=== PATIENT | female | born 1940 | race Caucasian/White ===

== ENCOUNTER 2018-11-16 06:27 | Day surgery (SDC) | payer MEDICARE, BC ==
[2018-11-14 15:46] LABS: MICROSCOPIC NOT IND
[2018-11-14 15:49] LABS: CULTURE INDICATED? NO
[2018-11-14 15:49] LABS: BASOPHILS # (AUTO) 0.05 x10^3/uL (0-0.1); BASOPHILS % (AUTO) 1 % (0-1); EOSINOPHILS % (AUTO) 4 % (1-7); LYMPHOCYTES # (AUTO) 1.46 x10^3/uL (1-3.4); LYMPHOCYTES % (AUTO) 28 % (22-44); MD NO; MEAN CORPUSCULAR HEMOGLOBIN 32.4 pg (27.0-34.8); MEAN PLATELET VOLUME 8.3 fL (7.4-10.4); MONOCYTES # (AUTO) 0.55 x10^3/uL (0.2-0.8); MONOCYTES % (AUTO) 11 % (2-9); NEUTROPHILS # (AUTO) 2.99 x10^3/uL (1.8-6.8); NEUTROPHILS % (AUTO) 57 % (42-75); PLATELET COUNT 233 x10^3/uL (130-400); RED BLOOD COUNT 4.23 x10^6/uL (3.82-5.3); RED CELL DISTRIBUTION WIDTH 13.3 % (9.6-15.2)
[2018-11-14 15:55] LABS: ANION GAP 9 mmol/L (5-15); CALCIUM 9.1 mg/dL (8.5-10.1); CHLORIDE 106 mmol/L (98-107); CREATININE 1.05 mg/dL (0.55-1.02); INTERNATIONAL NORMALIZED RATIO 0.95 (0.93-1.1)
[~2018-11-16] VITALS: Ht 167.6 cm; Wt 62.8 kg
[~2018-11-16 06:27] MED LIST: ALIGN PROBIOTIC PO; ASCO-96 PO; ATOR20TA37 PO; BACITRACIN 50,000 UNIT ONE; BIOT25005 PO; BUPIVACAINE/PF 0.25% ONE; CART1TAB4 PO; CYAN25009 PO; EPINEPHRINE 1 MG/ML, 1ML ONE; ESTR0.5T PO; GABA300C10 PO; IBUP200C8 PO; LEVO100T5 PO; LIFI1DRO EACHEYE; MAGN100T PO; ONE A DAY WOMEN'S PO; SELE200T10 PO; THROMBIN 5,000 UNIT VIAL TP ONE; TRAZ50TA66 PO; UBID100C10 PO; VANCOMYCIN 1,000 MG ONE; VITAMIN D3 PO; ZINC PO; [UNRECOGNIZED DRUG - OTHER] PO
[2018-11-16] MEDS ORDERED: LACTATED RINGERS 1,000 ML IV SCH (07:06)
[2018-11-16] MEDS ORDERED: ACETAMINOPHEN 500 MG TABLET PO ONE (07:30)
[2018-11-16] MEDS ORDERED: GABAPENTIN 300 MG CAPSULE PO ONE (07:30)
[2018-11-16 07:34] VITALS: BP 101/64
[2018-11-16] MEDS ORDERED: methylPREDNISolone SOD SUCC 125 MG/2 ML ONE (07:53)
[2018-11-16] MEDS ORDERED: FENTANYL PF 250 MCG/5ML ONE (08:45)
[2018-11-16] MEDS ORDERED: PROMETHAZINE 25 MG/ML, 1ML IV PRN (09:00)
[2018-11-16] MEDS ORDERED: hydrALAzine 20 MG/ML, 1ML IV PRN (09:00)
[2018-11-16] MEDS ORDERED: METOPROLOL 1 MG/ML, 5ML IV PRN (09:00)
[2018-11-16] MEDS ORDERED: DIPHENHYDRAMINE 50 MG/ML, 1ML IVPush PRN (09:00)
[2018-11-16] MEDS ORDERED: MEPERIDINE/PF 25MG/0.5ML IVPush PRN (09:00)
[2018-11-16] MEDS ORDERED: OXYcodone 5 MG/5 ML ORAL.SOL UDC PO PRN (09:00)
[2018-11-16] MEDS ORDERED: HALOPERIDOL 5 MG/ML IV PRN (09:00)
[2018-11-16] MEDS ORDERED: HYDROmorphone 2 MG/ML, 1ML IVPush PRN (09:00)
[2018-11-16] MEDS ORDERED: PROCHLORPERAZINE 5 MG/ML, 2ML IV PRN (09:00)
[2018-11-16] MEDS ORDERED: LABETALOL 5MG/ML, 20ML IV PRN (09:00)
[2018-11-16] MEDS ORDERED: FENTANYL PF 100 MCG/2ML IV PRN (09:00)
[2018-11-16] MEDS ORDERED: FENTANYL PF 100 MCG/2ML ONE (09:23)
[2018-11-16] MEDS ORDERED: NEOSTIGMINE 1 MG/ML, 10ML ONE (09:33)
[2018-11-16] MEDS ORDERED: ROCURONIUM 10MG/ML,5ML ONE (09:33)
[2018-11-16] MEDS ORDERED: GLYCOPYRROLATE 0.2MG/1ML, 5ML ONE (09:33)
[2018-11-16] MEDS ORDERED: SUCCINYLCHOLINE 20 MG/ML, 10ML ONE (09:33)
[2018-11-16] MEDS ORDERED: ONDANSETRON 2MG/ML, 2ML ONE (09:33)
[2018-11-16] MEDS ORDERED: DEXAMETHASONE 4 MG/ML, 1ML ONE (09:33)
[2018-11-16] MEDS ORDERED: PROPOFOL 10 MG/ML, 20ML ONE (09:33)
[2018-11-16] MEDS ORDERED: CEFAZOLIN 1,000 MG ONE (09:33)
[2018-11-16] MEDS ORDERED: BUPIVACAINE/PF 0.25% INFIL ONE ×2 (09:34)
[2018-11-16] MEDS ORDERED: FENTANYL PF 100 MCG/2ML EPIDPUSH ONE (09:38)
[2018-11-16] MEDS ORDERED: TIZA2TAB PO (09:59)
[2018-11-16] MEDS ORDERED: OXYC1TAB7 PO (09:59)
== END 2018-11-16 14:40 | disposition home or self-care (01) ==
LOC: OUT 06:27
PROVIDERS: ATTEND Neurological Surgery
DX: M51.16 Intervertebral disc disorders with radiculopathy, lumbar region (principal); Z79.01 Long term (current) use of anticoagulants; E78.00 Pure hypercholesterolemia, unspecified; F41.9 Anxiety disorder, unspecified; F32.9 Major depressive disorder, single episode, unspecified; E03.9 Hypothyroidism, unspecified; Z90.710 Acquired absence of both cervix and uterus; Z98.890 Other specified postprocedural states; Z87.891 Personal history of nicotine dependence; Z72.89 Other problems related to lifestyle
CPT/HCPCS: 36415; 63030; 71046; 72100; 80048; 81003; 85025; 85610; 85730; 93005; J0171; J0330; J0690; J1100; J2405; J2704; J2710; J2930; J3010; J3490; J7120; J3370